=== PATIENT | female | born 1995 | race African-American/Black ===

== ENCOUNTER 2024-09-17 15:25 | Emergency (ER) | payer SELFPAY ==
[~2024-09-17] VITALS: Ht 175.3 cm; Wt 100.0 kg
[2024-09-17 15:28] VITALS: O2SAT 98
[2024-09-17 15:41] VITALS: BP 165/97; PULSE 97; RESP 16; TEMP 36.8; O2SAT 100
[2024-09-17] MEDS: MECLIZINE 25MG TABLET PO ONE (16:19)
[2024-09-17 16:52] LABS: CLARITY URINE CLEAR (CLEAR); COLOR URINE YELLOW (YELLOW); GLUCOSE URINE NEGATIVE (NEGATIVE); KETONES URINE NEGATIVE (NEGATIVE); LEUKOCYTE ESTERASE URINE NEGATIVE (NEGATIVE); NITRITE URINE NEGATIVE (NEGATIVE); OCCULT BLOOD URINE NEGATIVE (NEGATIVE); PH URINE 6.5 (4.5-8.0); PROTEIN URINE 2+ (NEGATIVE); SPECIFIC GRAVITY URINE 1.021 (1.005-1.030)
[2024-09-17 16:53] LABS: BASOPHILS % 0.7 % (0.0-2.0); EOSINOPHILS % 0.5 % (0.0-5.0); HEMATOCRIT. 37.9 % (36.0-48.0); HEMOGLOBIN. 12.2 g/dL (12.0-16.0); LYMPHOCYTES % 15.6 % (20.0-50.0); MEAN CORPUSCULAR HEMOGLOBIN 26.3 pg (28.0-32.0); MEAN CORPUSCULAR HGB CONC 32.3 g/dL (31.0-37.0); MEAN CORPUSCULAR VOLUME 81.5 fL (81.0-99.0); MEAN PLATELET VOLUME 7.7 fl (7.4-10.4); MONOCYTES % 7.3 % (2.0-8.0); NEUTROPHILS % 75.9 % (40.0-76.0); PLATELET 305 x1000/uL (130-400); RED BLOOD CELL COUNT 4.65 mill/uL (4.2-5.4); RED CELL DISTRIBUTION WIDTH 14.7 % (11.6-14.6); WHITE BLOOD COUNT 10.8 x1000/uL (4.5-11.0)
[2024-09-17 16:59] LABS: CARBON DIOXIDE 22 mEq/L (21-32); CHLORIDE 104 mEq/L (98-107); POTASSIUM 3.8 mEq/L (3.5-5.1); SODIUM 134 mEq/L (136-145)
[2024-09-17 17:00] LABS: CALCIUM 8.9 mg/dL (8.7-10.4)
[2024-09-17 17:04] LABS: CREATININE 0.8 mg/dL (0.6-1.0)
[2024-09-17 17:05] LABS: GLUCOSE 113 mg/dL (70-105); UREA NITROGEN BLOOD 7 mg/dL (9-23)
[2024-09-17 17:06] LABS: RBC URINE NONE SEEN /hpf (0-2); SQUAMOUS EPITHELIAL CELL URINE FEW /lpf (RARE/1+); WBC URINE 0-2 /hpf (0-2)
[2024-09-17 17:07] LABS: BACTERIA URINE NONE SEEN
[2024-09-17 17:23] LABS: B-HCG QUANTITATIVE 3391 mIU/mL (<6)
[2024-09-17] MEDS ORDERED: METO-293 MT (18:07)
== END 2024-09-17 18:27 | disposition home or self-care (01) ==
LOC: ER 15:25
DX: O99.341 Other mental disorders complicating pregnancy, first trimester (principal); Z90.49 Acquired absence of other specified parts of digestive tract; Z79.899 Other long term (current) drug therapy; Z86.2 Personal history of diseases of the blood and blood-forming organs and certain disorders involving the immune mechanism; Z3A.00 Weeks of gestation of pregnancy not specified
CPT/HCPCS: 99284; 76801; 80048; 81003; 81025; 84702; 85025; 36415; J8597